=== PATIENT | male | born 1965 | race Caucasian/White ===

== ENCOUNTER 2022-12-05 11:25 | Outpatient (CLI) | payer BC, SELFPAY | END 2022-12-05 11:26 | disposition home or self-care (01) | LOC: AMB 12-06 13:36 | PROVIDERS: PCP Family Medicine; Visit Provider Family Medicine | DX: S71.112A Laceration without foreign body, left thigh, initial encounter (principal); W18.30XA Fall on same level, unspecified, initial encounter; Y92.008 Other place in unspecified non-institutional (private) residence as the place of occurrence of the external cause | CPT/HCPCS: A0425; A0427 ==

== ENCOUNTER 2024-03-04 23:56 | Emergency (ER) | payer BC, SELFPAY ==
[2024-03-05] VITALS (76 sets, daily range): BP systolic 111–147; BP diastolic 60–94; PULSE 51–86; RESP 20; TEMP 36; O2SAT 91–99; BMI 30.3
--- NOTE | 2024-03-05 00:11 | ED.GENADULT ---
HPI - General Adult General Chief complaint: Chest Pain Stated complaint: Chest pain Time Seen by Provider: 03/05/24 00:02 History of Present Illness HPI narrative: Pt aox4, ABCs intact. Pt arrives with from home for evaluation of heavy midsternal chest pain that goes down his left arm. 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 Patient also having mild SOB and nausea. Hx of 2 stents 8 years ago. 59-year-old man presenting to the emergency department with concern of burning midsternal chest pain that seems to radiate into his left upper arm as well. 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 It has been going on a little over an hour now. During my interview he does deny shortness of breath and nausea though apparently reported this during triage. Does have a history of cardiac stents with 1 placed for 90% occlusion he says 14 years ago and another 60% occlusion 8 years ago. Denies heart attack but I do see upon review of records a non-STEMI listed. Otherwise has been in usual state of health. Symptoms are not dissimilar from prior angina per his description. Does have a history of heartburn and after Zantac was pulled some switched over to omeprazole. If you does not take it he does get heartburn but that does not appear to be what he is describing here today in symptoms. Pain is not pleuritic. History also of elevated triglycerides. History also diverticulitis History of sigmoid and descending colectomy Non-STEMI in 2013 - 07/16/07 Taxus YOANA to LAD, 50% RCA disease - 06/2013 Stress echo negative for ischemia - 06/19/14 NSTEMI, 80% mid Circ on angio, patient LAD stent; s/p YOANA to mid Circ. EF 65% by LV gram Related Data Home Medications ?Medication ?Instructions ?Recorded ?Confirmed ezetimibe 10 mg tablet 10 mg PO DAILY 03/05/24 03/05/24 metoprolol succinate 25 mg 25 mg PO DAILY 03/05/24 03/05/24 tablet,extended release 24 hr rosuvastatin 40 mg tablet 40 mg PO DAILY 03/05/24 03/05/24 Allergies Allergy/AdvReac Type Severity Reaction Status Date / Time No Known Drug Allergies Allergy Verified 03/05/24 00:08 Review of Systems Status of ROS: Reports: 6 or more systems reviewed and unremarkable except as noted in History and below [facility] Social History Non-prescribed substance use: denies use Exam Narrative: Exam Narrative: Pleasant. NAD. Skin is warm and dry. Well-perfused peripherally. Lower extremities with trace dependent edema. Lungs are clear. Heart in regular rate and rhythm. Distant. I do see PVCs on monitor during my time in the room; these appear to be asymptomatic. No pain to palpation across the chest wall. Abdomen is overweight soft nontender. Good pulses in equal upper extremities. Const: Vital Signs, click to edit/add: Vital Signs - 24 hr 03/05/24 00:06 03/05/24 00:07 03/05/24 00:08 Temperature 96.8 F L Pulse Rate 76 77 Pulse Rate [Pulse Oximeter] 77 Respiratory Rate 20 Blood Pressure 137/94 H Blood Pressure [Ri ght Upper Arm] 147/92 H Pulse Oximetry 96 97 97 Oxygen Delivery Me thod Room Air Oxygen Flow Rate 03/05/24 00:15 03/05/24 00:17 03/05/24 00:31 Temperature Pulse Rate 72 69 70 Pulse Rate [Pulse Oximeter] Respiratory Rate Blood Pressure 141/89 H Blood Pressure [Ri ght Upper Arm] Pulse Oximetry 98 97 95 Oxygen Delivery Me thod Oxygen Flow Rate 03/05/24 00:32 03/05/24 00:42 03/05/24 00:45 Temperature Pulse Rate 74 86 77 Pulse Rate [Pulse Oximeter] Respiratory Rate Blood Pressure 145/89 H 111/73 Blood Pressure [Ri ght Upper Arm] Pulse Oximetry 96 91 93 Oxygen Delivery Me thod Oxygen Flow Rate 03/05/24 00:52 03/05/24 00:53 03/05/24 01:00 Temperature Pulse Rate 65 68 Pulse Rate [Pulse Oximeter] Respiratory Rate Blood Pressure 124/75 Blood Pressure [Ri ght Upper Arm] Pulse Oximetry 93 94 94 Oxygen Delivery Me thod Nasal Cannula Oxygen Flow Rate 2 03/05/24 01:02 03/05/24 01:12 03/05/24 01:15 Temperature Pulse Rate 69 67 67 Pulse Rate [Pulse Oximeter] Respiratory Rate Blood Pressure 122/73 127/75 Blood Pressure [Ri ght Upper Arm] Pulse Oximetry 94 94 94 Oxygen Delivery Me thod Oxygen Flow Rate 03/05/24 01:30 03/05/24 01:32 03/05/24 01:42 Temperature Pulse Rate 64 63 62 Pulse Rate [Pulse Oximeter] Respiratory Rate Blood Pressure 138/75 134/73 Blood Pressure [Ri ght Upper Arm] Pulse Oximetry 95 94 95 Oxygen Delivery Me thod Oxygen Flow Rate 03/05/24 01:45 03/05/24 01:52 03/05/24 02:00 Temperature Pulse Rate 62 63 67 Pulse Rate [Pulse Oximeter] Respiratory Rate Blood Pressure 133/74 Blood Pressure [Ri ght Upper Arm] Pulse Oximetry 95 95 95 Oxygen Delivery Me thod Oxygen Flow Rate 03/05/24 02:02 03/05/24 02:12 03/05/24 02:15 Temperature Pulse Rate 68 66 62 Pulse Rate [Pulse Oximeter] Respiratory Rate Blood Pressure 139/78 138/75 Blood Pressure [Ri ght Upper Arm] Pulse Oximetry 95 97 96 Oxygen Delivery Me thod Oxygen Flow Rate 03/05/24 02:22 03/05/24 02:30 03/05/24 02:32 Temperature Pulse Rate 56 L 66 61 Pulse Rate [Pulse Oximeter] Respiratory Rate Blood Pressure 119/76 126/72 Blood Pressure [Ri ght Upper Arm] Pulse Oximetry 98 94 94 Oxygen Delivery Me thod Oxygen Flow Rate 03/05/24 02:42 03/05/24 02:45 03/05/24 02:52 Temperature Pulse Rate 59 L 60 59 L Pulse Rate [Pulse Oximeter] Respiratory Rate Blood Pressure 120/70 128/69 Blood Pressure [Ri ght Upper Arm] Pulse Oximetry 96 95 97 Oxygen Delivery Me thod Oxygen Flow Rate Documenting provider has reviewed patient's vital signs: yes Course Vital Signs Vital signs: Initial Vital Signs Pulse Rate 76 03/05/24 00:06 Blood Pressure 137/94 H 03/05/24 00:06 Blood Pressure Mean 108 H 03/05/24 00:06 Pulse Oximetry 96 03/05/24 00:06 Vital Signs Pulse Rate 76 03/05/24 00:06 Blood Pressure 137/94 H 03/05/24 00:06 Pulse Oximetry 96 03/05/24 00:06 Temperature 96.8 F L 03/05/24 00:08 Pulse Rate 59 L 03/05/24 02:52 Respiratory Rate 20 07/20/24 00:08 Blood Pressure 128/69 03/05/24 02:52 Pulse Oximetry 97 03/05/24 02:52 Oxygen Delivery Method Nasal Cannula 03/05/24 00:53 Oxygen Flow Rate 2 03/05/24 00:53 Medications Administered Medications: Generic Name Dose Route Start Last Admin Trade Name Freq PRN Reason Stop Dose Admin Nitroglycerin 0.4 mg 03/05/24 00:23 03/05/24 02:26 Nitroglycerin 0.4 Mg Tab.Subl SUBLINGUAL 0.4 mg Q5M PRN Administration Chest Pain Discontinued Medications Generic Name Dose Route Start Last Admin Trade Name Freq PRN Reason Stop Dose Admin Aspirin 162 mg 03/05/24 00:23 03/05/24 00:31 Aspirin 81 Mg Tab.Chew PO 03/05/24 00:24 162 mg ONCE ONE Administration Sodium Chloride 500 mls @ 500 mls/hr 03/05/24 00:23 03/05/24 01:35 0.9 % Sodium Chloride 500 Ml IV 03/05/24 01:22 Infused .Q1H ONE Infusion Medical Decision Making MDM Narrative Medical decision making narrative: I would have concern given history of potential ischemic heart disease/ACS. Initial EKG reviewed by me does look similar to prior. The ST segments look a little deep in lead 1 and might be elevating a little bit in lead 3 Will check serial enzymes. I suppose could be vascular dissection, acid reflux, esophageal spasm, pneumonia, pneumothorax or pneumomediastinum, pulmonary embolus. initiating IV. Aspirin will be given and p.r.n. nitro. Chest x-ray reviewed by me looks WNL. Initial nitro cut pain and half. Still it was at a 4 and was given another nitro where upon pain escalated little bit but ultimately resolve until later in course returned and resolved once more with 1 further nitro. At 1 hour after initial EKG and blood draw, repeat pain-free EKG showing normalization of the mild ST depression in [address] elevation in 3. Repeat troponin at that time was indeterminate and remained so at 3 hours. No events on monitor. While initially with some exertional component, I do think discomfort that Mr. Mason has been describing represents unstable angina. Will be discussing with Cardiology Accepted to [facility] by cardiology for further evaluation. Unable to do echo/stress echo here on the weekend and certainly not angiogram at this facility, which will likely be needed Anticipate ambulance transport when bed available Medical Records Medical records reviewed: Yes I reviewed the patient's medical records Lab Data Lab results reviewed: Yes I reviewed the patient's lab results Labs: Lab Results 03/05/24 03/05/24 03/05/24 Range/Units 00:10 00:23 00:29 WBC 6.39 (4.50-11.00) K/uL RBC 5.63 (4.30-5.90) m/uL Hgb 15.6 (13.5-17.5) gm/dL Hct 46.1 (37.0-53.0) % MCV 82 (80-100) fL MCH 28 (26-34) pg MCHC 34 (32-36) gm/dL RDW Coeff of Noah 13.5 (11.5-15.5) % Plt Count 182 (140-440) K/uL Neut % (Auto) 57.7 (42.0-72.0) % Lymph % (Auto) 26.8 (20-44) % Barbour % (Auto) 11.7 H (0.0-11.0) % Eos % (Auto) 3.3 (0.0-7.0) % Baso % (Auto) 0.3 (0.0-3.0) % Neut # (Auto) 3.69 (1.7-7.0) K/uL Lymph # (Auto) 1.71 (0.90-2.90) K/uL Barbour # (Auto) 0.70 (0.00-0.90) K/UL Eos # (Auto) 0.21 (0.00-0.50) K/uL Baso # (Auto) 0.02 (0.00-0.30) K/uL Abs Immat Gran (auto) 0.01 (0.00-0.30) K/uL Imm/Tot Granulo (auto) 0.2 % INR 0.97 (0.91-1.10) APTT 30 (23-33) Seconds D-Dimer Quant (PE/DVT) 0.37 (0.00-0.50) ug/ml Sodium 138 (135-149) mmol/L Potassium 3.8 (3.6-5.1) mmol/L Chloride 106 (96-114) mmol/L Carbon Dioxide 24 (20-32) mmol/L Anion Gap 8 (7-15) mEq/L BUN 14 (7-30) mg/dL Creatinine 1.0 (0.5-1.5) mg/dL Estimated Creat Clear 78.56 Estimated GFR 86 ml/min Glucose 145 H (60-115) mg/dL Calcium 8.9 (8.4-10.6) mg/dL Total Bilirubin 0.8 (0.1-1.5) mg/dL Direct Bilirubin (0.0-0.5) mg/dL AST (12-35) U/L ALT (4-50) U/L Alkaline Phosphatase (40-150) U/L Troponin I (0.01-0.04) ng/mL NT-Pro-B Natriuret Pep pg/mL Total Protein (6.0-8.3) g/dL Albumin (3.3-5.0) g/dL POC Creatinine 1.0 (0.6-1.3) mg/dl POC Troponin I 0.05 H (0.01-0.04) ng/ml 03/05/24 03/05/24 03/05/24 Range/Units 00:29 00:29 00:29 WBC (4.50-11.00) K/uL RBC (4.30-5.90) m/uL Hgb (13.5-17.5) gm/dL Hct (37.0-53.0) % MCV (80-100) fL MCH (26-34) pg MCHC (32-36) gm/dL RDW Coeff of Noah (11.5-15.5) % Plt Count (140-440) K/uL Neut % (Auto) (42.0-72.0) % Lymph % (Auto) (20-44) % Barbour % (Auto) (0.0-11.0) % Eos % (Auto) (0.0-7.0) % Baso % (Auto) (0.0-3.0) % Neut # (Auto) (1.7-7.0) K/uL Lymph # (Auto) (0.90-2.90) K/uL Barbour # (Auto) (0.00-0.90) K/UL Eos # (Auto) (0.00-0.50) K/uL Baso # (Auto) (0.00-0.30) K/uL Abs Immat Gran (auto) (0.00-0.30) K/uL Imm/Tot Granulo (auto) % INR (0.91-1.10) APTT (23-33) Seconds D-Dimer Quant (PE/DVT) (0.00-0.50) ug/ml Sodium (135-149) mmol/L Potassium (3.6-5.1) mmol/L Chloride (96-114) mmol/L Carbon Dioxide (20-32) mmol/L Anion Gap (7-15) mEq/L BUN (7-30) mg/dL Creatinine (0.5-1.5) mg/dL Estimated Creat Clear Estimated GFR ml/min Glucose (60-115) mg/dL Calcium (8.4-10.6) mg/dL Total Bilirubin Cancelled (0.1-1.5) mg/dL Direct Bilirubin 0.3 Cancelled (0.0-0.5) mg/dL AST 46 H Cancelled (12-35) U/L ALT 34 (4-50) U/L Alkaline Phosphatase (40-150) U/L Troponin I (0.01-0.04) ng/mL NT-Pro-B Natriuret Pep pg/mL Total Protein (6.0-8.3) g/dL Albumin (3.3-5.0) g/dL POC Creatinine (0.6-1.3) mg/dl POC Troponin I (0.01-0.04) ng/ml 03/05/24 03/05/24 03/05/24 Range/Units 00:29 00:29 00:29 WBC (4.50-11.00) K/uL RBC (4.30-5.90) m/uL Hgb (13.5-17.5) gm/dL Hct (37.0-53.0) % MCV (80-100) fL MCH (26-34) pg MCHC (32-36) gm/dL RDW Coeff of Noah (11.5-15.5) % Plt Count (140-440) K/uL Neut % (Auto) (42.0-72.0) % Lymph % (Auto) (20-44) % Barbour % (Auto) (0.0-11.0) % Eos % (Auto) (0.0-7.0) % Baso % (Auto) (0.0-3.0) % Neut # (Auto) (1.7-7.0) K/uL Lymph # (Auto) (0.90-2.90) K/uL Barbour # (Auto) (0.00-0.90) K/UL Eos # (Auto) (0.00-0.50) K/uL Baso # (Auto) (0.00-0.30) K/uL Abs Immat Gran (auto) (0.00-0.30) K/uL Imm/Tot Granulo (auto) % INR (0.91-1.10) APTT (23-33) Seconds D-Dimer Quant (PE/DVT) (0.00-0.50) ug/ml Sodium (135-149) mmol/L Potassium (3.6-5.1) mmol/L Chloride (96-114) mmol/L Carbon Dioxide (20-32) mmol/L Anion Gap (7-15) mEq/L BUN (7-30) mg/dL Creatinine (0.5-1.5) mg/dL Estimated Creat Clear Estimated GFR ml/min Glucose (60-115) mg/dL Calcium (8.4-10.6) mg/dL Total Bilirubin (0.1-1.5) mg/dL Direct Bilirubin (0.0-0.5) mg/dL AST (12-35) U/L ALT Cancelled (4-50) U/L Alkaline Phosphatase 89 Cancelled (40-150) U/L Troponin I 0.06 H* (0.01-0.04) ng/mL NT-Pro-B Natriuret Pep 37 pg/mL Total Protein 7.4 Cancelled (6.0-8.3) g/dL Albumin 4.4 (3.3-5.0) g/dL POC Creatinine (0.6-1.3) mg/dl POC Troponin I (0.01-0.04) ng/ml 03/05/24 03/05/24 03/05/24 Range/Units 00:29 01:15 02:50 WBC (4.50-11.00) K/uL RBC (4.30-5.90) m/uL Hgb (13.5-17.5) gm/dL Hct (37.0-53.0) % MCV (80-100) fL MCH (26-34) pg MCHC (32-36) gm/dL RDW Coeff of Noah (11.5-15.5) % Plt Count (140-440) K/uL Neut % (Auto) (42.0-72.0) % Lymph % (Auto) (20-44) % Barbour % (Auto) (0.0-11.0) % Eos % (Auto) (0.0-7.0) % Baso % (Auto) (0.0-3.0) % Neut # (Auto) (1.7-7.0) K/uL Lymph # (Auto) (0.90-2.90) K/uL Barbour # (Auto) (0.00-0.90) K/UL Eos # (Auto) (0.00-0.50) K/uL Baso # (Auto) (0.00-0.30) K/uL Abs Immat Gran (auto) (0.00-0.30) K/uL Imm/Tot Granulo (auto) % INR (0.91-1.10) APTT (23-33) Seconds D-Dimer Quant (PE/DVT) (0.00-0.50) ug/ml Sodium (135-149) mmol/L Potassium (3.6-5.1) mmol/L Chloride (96-114) mmol/L Carbon Dioxide (20-32) mmol/L Anion Gap (7-15) mEq/L BUN (7-30) mg/dL Creatinine (0.5-1.5) mg/dL Estimated Creat Clear Estimated GFR ml/min Glucose (60-115) mg/dL Calcium (8.4-10.6) mg/dL Total Bilirubin (0.1-1.5) mg/dL Direct Bilirubin (0.0-0.5) mg/dL AST (12-35) U/L ALT (4-50) U/L Alkaline Phosphatase (40-150) U/L Troponin I (0.01-0.04) ng/mL NT-Pro-B Natriuret Pep pg/mL Total Protein (6.0-8.3) g/dL Albumin Cancelled (3.3-5.0) g/dL POC Creatinine (0.6-1.3) mg/dl POC Troponin I 0.05 H 0.06 H (0.01-0.04) ng/ml ECG Data Attestation: I personally reviewed and interpreted this ECG as follows: (Normal sinus rhythm. Rate of 78. Similar to September of 2019 however there might be some deepening of the ST segments in lead 1 and some subtle elevation in lead 3.) Discharge Plan Discharge Clinical Impression: Unstable angina Patient Disposition: [facility] Condition: Stable Prescriptions: No Action metoprolol succinate 25 mg tablet extended release 24 hr 25 mg PO DAILY ezetimibe 10 mg tablet 10 mg PO DAILY rosuvastatin 40 mg tablet 40 mg PO DAILY Follow Up/Referrals: Librado Villeda MD [Primary Care Provider] - Stand Alone Forms: My[facility] Info Instructions
--- NOTE | 2024-03-05 00:24 | CRLHL7_ITS ---
For Patients: As a result of the Century Cures Act, medical imaging exams and procedure reports are released immediately into your electronic medical record. You may view this report before your referring provider. If you have questions, please contact your health care provider. INDICATION: Midsternal pain. TECHNIQUE: Chest 1 view. COMPARISON: Chest radiograph 06/19/2014. FINDINGS: Low lung volumes with minimal bibasilar atelectasis. No focal consolidation, pleural effusion, or pneumothorax. Normal heart size and pulmonary vascularity. The bones are unremarkable. IMPRESSION: No acute cardiopulmonary findings. Dictated by Valentina Sullivan MD @ 03/05/2024 2:11:32 AM (Electronically Signed)
[2024-03-05] MEDS: 0.9 % SODIUM CHLORIDE 500 ML 500 ML IV (00:31)
[2024-03-05] MEDS: ASPIRIN 81 MG TAB.CHEW 162 MG PO (00:31)
[2024-03-05] MEDS: NITROGLYCERIN 0.4 MG TAB.SUBL SUBLINGUAL ×3 (00:31→02:26)
[2024-03-05 00:32] LABS: Troponin, Point-of-Care* 0.05 ng/ml (0.01-0.04)
[2024-03-05 00:49] LABS: Basophils Absolute Auto 0.02 K/uL (0.00-0.30); Basophils Percent Auto 0.3 % (0.0-3.0); Eosinophils Absolute Auto 0.21 K/uL (0.00-0.50); Eosinophils Percent Auto 3.3 % (0.0-7.0); Hematocrit 46.1 % (37.0-53.0); Hemoglobin* 15.6 gm/dL (13.5-17.5); Immature Granulocytes Abs Auto 0.01 K/uL (0.00-0.30); Immature Granulocytes Pct Auto 0.2 %; Lymphocytes Absolute Auto 1.71 K/uL (0.90-2.90); Lymphocytes Percent Auto 26.8 % (20-44); Mean Corpuscular HGB Conc 34 gm/dL (32-36); Mean Corpuscular Hemoglobin 28 pg (26-34); Mean Corpuscular Volume 82 fL (80-100); Monocytes Percent Auto 11.7 % (0.0-11.0); Neutrophils Absolute Auto 3.69 K/uL (1.7-7.0); Neutrophils Percent Auto 57.7 % (42.0-72.0); Platelet Count* 182 K/uL (140-440); RDW Coefficient of Variation % 13.5 % (11.5-15.5); Red Blood Count 5.63 m/uL (4.30-5.90); White Blood Count* 6.39 K/uL (4.50-11.00)
[2024-03-05 00:53] LABS: Slide Review Reflex No
[2024-03-05 01:10] LABS: INR 0.97 (0.91-1.10); Partial Thromboplastin Time* 30 Seconds (23-33); Prothrombin Time 13.5 Seconds
[2024-03-05 01:11] LABS: D Dimer Quantitative* 0.37 ug/ml (0.00-0.50)
[2024-03-05 01:12] LABS: Chloride* 106 mmol/L (96-114)
[2024-03-05 01:13] LABS: Albumin* 4.4 g/dL (3.3-5.0); Potassium* 3.8 mmol/L (3.6-5.1); Sodium* 138 mmol/L (135-149)
[2024-03-05 01:15] LABS: Anion Gap 8 mEq/L (7-15); Carbon Dioxide* 24 mmol/L (20-32); Est. Creatinine Clearance* 78.56; Estimated Glomerular Filt Rate 86 ml/min
[2024-03-05 01:16] LABS: Alanine Aminotransferase* 34 U/L (4-50); Alkaline Phosphatase* 89 U/L (40-150); Aspartate Amino Transferase* 46 U/L (12-35); Bilirubin Direct* 0.3 mg/dL (0.0-0.5); Bilirubin Total* 0.8 mg/dL (0.1-1.5); Blood Urea Nitrogen* 14 mg/dL (7-30); Calcium* 8.9 mg/dL (8.4-10.6); Glucose* 145 mg/dL (60-115); Total Protein* 7.4 g/dL (6.0-8.3)
[2024-03-05 01:29] LABS: NT Pro B Type NatriureticPept* 37 pg/mL; Troponin I* 0.06 ng/mL (0.01-0.04)
[2024-03-05 01:35] LABS: Troponin, Point-of-Care* 0.05 ng/ml (0.01-0.04)
[2024-03-05 03:17] LABS: Troponin, Point-of-Care* 0.06 ng/ml (0.01-0.04)
--- NOTE | 2024-03-05 07:34 | ED.NURSE ---
transferred to [employer] via [facility]
== END 2024-03-05 07:36 | disposition short-term general hospital (02) ==
PROVIDERS: Emergency Provider Family Medicine; PCP Family Medicine
DX: I20.0 Unstable angina (principal)
CPT/HCPCS: 36415; 71045; 80048; 80076; 82565; 83880; 84484; 85025; 85379; 85610; 85730; 93005; 96360; 99284; 99285; A9270; J7030

== ENCOUNTER 2024-03-05 07:25 | Outpatient (CLI) | payer BC, SELFPAY | END 2024-03-05 07:26 | disposition home or self-care (01) | LOC: AMB 03-06 01:44 | PROVIDERS: PCP Family Medicine; Visit Provider Family Medicine | DX: I20.0 Unstable angina (principal) | CPT/HCPCS: A0425; A0427 ==